=== PATIENT | male | born 1995 | race Caucasian/White ===

== ENCOUNTER 2021-08-25 11:06 | Day surgery (SDC) | payer OTHER, SELFPAY ==
--- NOTE | 2021-08-25 | PATH_ITS ---
[facility] Accession Number: [id number] . 01 Material submitted: . colon - RANDOM COLON . 02 Diagnosis: Random Colon, Biopsies: Superficial portions of colorectal mucosa with a moderately distorted crypt architecture and mild to moderate active inflammation. Please see comment. Negative for dysplasia or malignancy. V 08/27/2021 1116 Local . 02 Comment: Histologic sections demonstrate superficial portions of colorectal mucosa with increased lymphocytes, plasma cells, and neutrophils within the lamina propria. Crypt architecture is moderately distorted and scattered lymphoid aggregates are present. Occasional crypt abscesses are identified. No definite granulomas are identified. The differential diagnosis includes NSAID use, an acute self-limited bacterial colitis, diverticular disease-associated colitis, and idiopathic inflammatory bowel disease, in the appropriate clinical setting. There is no evidence of dysplasia or malignancy. . 02 Electronically signed: . Yaz Nayak MD, Pathologist NPI- [id number] . 01 Gross description: . RANDOM COLON: Received in formalin are multiple fragment(s) of charl[place], soft tissue measuring 0.9 x 0.9 x 0.2 cm in aggregate submitted entirely in 1 cassette(s) /QBJ 08/26/2021 0523 Local . 02 Pathologist provided ICD-10: R19.7 . 02 CPT . 389547 Performed at: [address] [facility] [address], [place], [place] [id number] MD Hugo Oh MD Phone: [phone] Performed at: 02 [facility] [address] [place], [place] [id number] MD Abbi Freeman MD Phone: [phone]
[2021-08-25 11:30] VITALS: BMI 20.6
[2021-08-25 11:39] LABS: COVID19 -Nasal RAPID Negative (Negative)
[2021-08-25 11:45] VITALS: BP 108/76; PULSE 86; RESP 14; TEMP 36.8; O2SAT 100; BMI 20.6
[2021-08-25 11:57] VITALS: BMI 20.6
[2021-08-25] MEDS: SODIUM CHLORIDE 0.9% 1,000 ML 84 ML IV (11:58)
--- NOTE | 2021-08-25 12:12 | PM.PREOP ---
Pre-operative Note COVID-19 Result date/Date tested (Pos, Neg/Pending): 08/25/21 Interval Note History & Physical reviewed/Exam performed by Physician: Yes Changes to H&P: No ASA Class (for procedural sedation): I
--- NOTE | 2021-08-25 12:12 | PM.OP.COLON ---
Operative Date/Time/Diagnoses Date of procedure: 08/25/21 Pre-op diagnosis: See indication and findings Procedure & Clinicians Study performed: Colonoscopy Indications: Bloody diarrhea Surgeon: Kaci Reyes Procedure Notes Procedure in detail: After informed consent was obtained the patient was placed in left lateral decubitus position. The video colonoscope was introduced the rectum slowly advanced cecum. The terminal ileum was then intubated. Preparation was good. On slow withdrawal mucosa was carefully examined. The scope was removed. The patient tolerated procedure well. Blood loss none Complications none Sedation mac Findings 1. Abnormal mucosa with multiple aphthous ulcerations in a confluent manner covering the entire colon. This was somewhat more severe in the rectum though it was still circumferential in the right colon. Multiple biopsies were taken in 1 bottle 2. Terminal ileum intubated and found to be normal Mr. Eng should start the prednisone Dr. Loera is given him and make a follow-up appointment with him. 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
[2021-08-25 13:12] VITALS: BP 96/62; PULSE 83; RESP 16; TEMP 36.6; O2SAT 99
[2021-08-25 13:17] VITALS: BP 92/58; PULSE 79; RESP 14; O2SAT 99
[2021-08-25 13:22] VITALS: BP 94/63; PULSE 75; RESP 16; O2SAT 100
[2021-08-25 13:29] VITALS: BP 95/65; PULSE 75; RESP 15; TEMP 36.4; O2SAT 100
[2021-08-25 13:33] VITALS: BP 99/63; PULSE 72; RESP 15; O2SAT 100
--- NOTE | 2021-08-25 13:44 | SUR.PHASEII ---
patient wide awake. converses appropriately with staff. denies pain or nausea. ambulates to restroom with steady gait. dc instructions reiterated and given. questions invited and answered. states understanding. passing flatus.
== END 2021-08-25 13:49 | disposition home or self-care (01) ==
PROVIDERS: Referring Provider Internal Medicine Gastroenterology; Visit Provider Internal Medicine Gastroenterology
PROC: 0DJD8ZZ Inspection of Lower Intestinal Tract, Via Natural or Artificial Opening Endoscopic (ICD-10-PCS; CPT 45378; principal; 2021-08-25 12:30)
DX: K52.9 Noninfective gastroenteritis and colitis, unspecified (principal); Z20.822 Contact with and (suspected) exposure to COVID-19
CPT/HCPCS: 45380; 87635; J2704